=== PATIENT | female | born 1975 | race Caucasian/White ===

== ENCOUNTER 2017-08-23 05:21 | Inpatient (IN) | payer BC, OTHER ==
[2017-08-17 14:20] LABS: HEMATOCRIT 40.2 % (37.0-47.0); HEMOGLOBIN 13.7 gm/dL (12.0-15.0); MCH 31.6 pg (26.0-34.0); MCV 92.8 fL (80.0-100.0); RBC 4.33 mil/uL (4.20-5.00); WBC 8.8 thou/uL (4.0-11.0)
[2017-08-17 14:21] LABS: URINE BILIRUBIN NEGATIVE (Negative); URINE BLOOD TRACE (Negative); URINE COLOR YELLOW; URINE GLUCOSE-RANDOM* NEGATIVE (Negative); URINE KETONES NEGATIVE (Negative); URINE LEUKOCYTES-REFLEX NEGATIVE (Negative); URINE PROTEIN (DIPSTICK) NEGATIVE (Negative); URINE UROBILINOGEN 0.2 E.U./dl (0.2-1.0)
[2017-08-17 14:31] LABS: ALBUMIN 4.4 g/dL (3.4-5.0); CALCIUM 9.4 mg/dL (8.5-10.1); CREATININE 0.9 mg/dL (0.6-1.0); POTASSIUM 3.5 mmol/L (3.5-5.1)
[2017-08-17 14:33] LABS: PROTIME 9.8 Seconds (9.3-11.4)
[~2017-08-23] VITALS: Ht 177.8 cm; Wt 68.0 kg
--- NOTE | ~2017-08-23 | O ---
[facility] [place] [address] OPERATIVE REPORT Name: HILTON VALENCIA Room #: 150-2 ADM IN M.R.#: [id number] Admission: 08/23/17 Attend Phys: Ernesto Bennett MD Discharge: Date of : 71 Report #: [id number] THIS REPORT FOR: //name// CC: Ernesto Jane DATE OF SERVICE: 08/23/2017 DATE OF SERVICE: 08/23/2017 PREOPERATIVE DIAGNOSIS: Left hip instability, status post total hip arthroplasty. POSTOPERATIVE DIAGNOSIS: Left hip instability, status post total hip arthroplasty. PROCEDURE: Left hip revision of acetabular cup and head component. SURGEON: Ernesto Bennett MD. POKER SUPERVISOR: SIMONA Caballero INDICATIONS FOR POKER SUPERVISOR: During the course of operation, extensive manipulation, retraction and limb positioning was required. This was afforded to me by my human resources benefits assistant. ANESTHETIC: General. INDICATIONS: See hospital H and P. DESCRIPTION OF PROCEDURE: After adequate general anesthesia had been obtained, the patient was placed in lateral decubitus position, left hip up. Left hip and lower extremity was prepped and draped in the usual meticulous sterile fashion. The previously made incision was excised, subQ divided sharply. IT band gluteal fascia was divided. This layer was distracted with Charnley retractor. The sciatic nerve was palpated. Hip was internally rotated and the previously placed external rotator repair was detached, tagged and retracted posteriorly. This exposed the implant. There was minimal serous fluid, but certainly no indication of any infectious process. The wound was irrigated copiously. I did take her through stability parameters and she really did not appear to have instability either anterior, posterior or with distal traction; however, because she was having ongoing subjective complaints of instability, I felt that incumbent to render her more stable with a different implant. We then dislocated the hip. The head was removed. The previously placed liner was removed. The wound was irrigated copiously. I then placed the MDM liner and it [address] [address] OPERATIVE REPORT Name: HILTON VALENCIA [place] Room #: 150-2 ADM IN M.R.#: [id number] Admission: 08/23/17 Attend Phys: Ernesto Bennett MD Discharge: Date of : 71 Report #: [id number] was impacted into place. We then placed the head and polyethylene component on to the compression device to articulate the two components. The head was then placed on to her ____ and impacted into position. The hip was reduced. She had excellent stability parameters. I really could not demonstrate any instability either anterior, posterior or with ____ testing. The wound was irrigated copiously. The external rotators were repaired back to the trochanter once again. Drains were placed deep to IT band layer. IT band gluteal fascia was closed with combination of interrupted [id number] #1 Vicryl as well as running #1 Tevdek. SubQ was closed with 2-0 Monocryl, skin closed with huey. Sterile compressive dressing applied. By: [id number] Ernesto Bennett MD /nt
[~2017-08-23 05:21] MED LIST: ALPRAZOLAM1 M1; AMBEREN; ASPIRIN325 PO; BENEFIBER152 GM PO; COLACE100 MG PO; FLEXERIL PO; HAIR, SKIN & N1 EAC3 PO; HUMIRA20 MG/0.4 SQ; HYDROCODON-ACE1 EAC8 PO; HYDROCODONE-AP1 EAC6 PO; HYDROCODONE-APA1 TA1 PO; LEVOTHYROXIN0.088 MG PO; LEXAPRO 10 MG T10 MG; LEXAPRO20 MG; LOESTRIN FE 1-1 EACH PO; LORTAB 5 MG/5001 TA1 PO; METOPROLOL SUCC50 MG PO; MS CONTIN15 MG PO; MULTI VITAMIN1 EACH PO; NORCO 5-325 TA1 EACH PO; OXYCONTIN10 M1 PO; PERCOCET 10-321 EACH PO; SYNTHROID75 MCG; TRAMADOL 50 MG50 MG PO; VIMOVO 500-201 EACH PO; VITAMIN B-12500 MCG PO; XANAX 0.5 MG0.5 MG PO; ZYRTEC10 MG PO
[2017-08-23 10:15] LABS: URINE BILIRUBIN NEGATIVE (Negative); URINE BLOOD TRACE (Negative); URINE COLOR YELLOW; URINE GLUCOSE-RANDOM* NEGATIVE (Negative); URINE KETONES NEGATIVE (Negative); URINE NITRITE NEGATIVE (Negative); URINE PROTEIN (DIPSTICK) NEGATIVE (Negative); URINE UROBILINOGEN 0.2 E.U./dl (0.2-1.0)
[2017-08-23 11:22] VITALS: BP 107/83
[2017-08-23 16:30] VITALS: BP 112/69
[2017-08-23 17:00] VITALS: BP 114/69
[2017-08-23 18:00] VITALS: BP 116/78
[2017-08-23 19:05] VITALS: BP 114/61
[2017-08-23 21:30] VITALS: BP 110/74
[2017-08-24 06:12] LABS: HEMATOCRIT 35.7 % (37.0-47.0); HEMOGLOBIN 11.9 gm/dL (12.0-15.0); MCHC 33.3 g/dL (28.0-37.0); MCV 92.9 fL (80.0-100.0); RBC 3.84 mil/uL (4.20-5.00); RDW 13.2 % (10.5-14.5); WBC 14.1 thou/uL (4.0-11.0)
[2017-08-24 06:38] VITALS: BP 100/69
[2017-08-24 08:06] VITALS: BP 99/60
[2017-08-24 15:00] VITALS: BP 123/77
[2017-08-24 19:33] VITALS: BP 136/81
[2017-08-25 04:35] VITALS: BP 120/72
[2017-08-25 06:05] LABS: HEMATOCRIT 32.6 % (37.0-47.0); MCH 31.6 pg (26.0-34.0); MCHC 33.7 g/dL (28.0-37.0); MCV 93.8 fL (80.0-100.0); RBC 3.48 mil/uL (4.20-5.00); RDW 13.6 % (10.5-14.5); WBC 8.1 thou/uL (4.0-11.0)
[2017-08-25 06:22] LABS: CALCIUM 8.5 mg/dL (8.5-10.1); CREATININE 0.8 mg/dL (0.6-1.0); POTASSIUM 3.5 mmol/L (3.5-5.1)
[2017-08-25] MEDS ORDERED: ASPIRIN325 PO (07:07)
[2017-08-25 08:36] VITALS: BP 110/71
[2017-08-25 14:49] VITALS: BP 110/71
[2017-08-25] MEDS ORDERED: DILAUDID2 MG PO (15:23)
[2017-08-25 15:25] VITALS: BP 110/71
== END 2017-08-25 17:21 | disposition home health service (06) | DRG 468 ==
LOC: 4N 05:21 → TBA 05:21 → PRE 05:27 → 4N 16:15 → ENTRNSPT 08-25 16:59 → 4N 08-25 17:21
PROVIDERS: Internal Medicine; Orthopaedic Surgery
PROC: 0SPB09Z Removal of Liner from Left Hip Joint, Open Approach (ICD-10-PCS; principal; 2017-08-23)
PROC: 0SUE09Z Supplement Left Hip Joint, Acetabular Surface with Liner, Open Approach (ICD-10-PCS; principal; 2017-08-23)
PROC: 0SR Lower Joints, Replacement (ICD-10-PCS; principal; 2017-08-23)
DX: M25.352 Other instability, left hip (principal); E03.9 Hypothyroidism, unspecified; M06.9 Rheumatoid arthritis, unspecified; Z85.828 Personal history of other malignant neoplasm of skin
CPT/HCPCS: 10790; 50010; 50101; 50382; 50414; 50455; 50855; 51412; 51771; 53000; 55388; 56521; 56525; 56527; 56530; 57095; 62110; 62900; 70005